=== PATIENT | male | born 1955 | race African-American/Black ===

== ENCOUNTER → 2017-05-28 | Outpatient (CLI) | payer OTHER ==
--- NOTE | 2017-05-28 15:36 | REP ---
Thoracic spine two views: There are no comparisons. Vertebral body heights and alignment are normal. There is moderate disc space narrowing throughout the thoracic spine with occasional bridging osteophytes anteriorly compatible with diffuse degenerative disc disease throughout the thoracic spine. Mineralization is normal. Pedicles are unremarkable. Impression: Diffuse degenerative disc disease throughout the thoracic spine. Signed by Steven Wisdom MD 05/28/2017 03:28 P
--- NOTE | 2017-05-28 16:26 | REP ---
AP LATERAL LEFT ELBOW: 05/28/2017. Clinical history: Posterior elbow injury. Pain. Findings: Prominent spur on the olecranon at the triceps insertion is noted. There is a tiny ossific density adjacent the posterior aspect of the olecranon near the distal humerus on the lateral view. It has smooth margins suggest old avulsion. There is no evidence of a joint effusion. I cannot confirm a definite olecranon bursitis. Radial head and capitellum align normally without fracture. There are small osteophytes in the coronoid process of the ulna and radial head at its metaphyseal margin. There is no evidence for avulsion or fracture about the epicondyles nor epicondylitis. Impression: 1. Prominent spur at the triceps insertion with old avulsion adjacent to the posterior olecranon near the posterior margin of the humerus with no definite olecranon bursitis. No epicondylitis or focal lesion. No acute fracture or joint effusion. No definite olecranon bursitis. Signed by Rowdy Russell MD 05/28/2017 04:31 P
--- NOTE | 2017-05-28 16:27 | REP ---
AP LATERAL LEFT KNEE: 05/28/2017: Clinical history: Knee injury, pain. Findings: There are no prior studies. The two views show spurs in the tibial spines, medial and lateral joint lines along the patellofemoral joint. Some mild narrowing of the patellofemoral joint may be present. Spurring at the quadriceps insertion and patellar tendon and origin on the patella on the lateral view. No loose body, osteochondral defect or displaced fracture. No avulsion. No definite effusion. IMPRESSION: 1. 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 No definite joint effusion. Signed by Rowdy Russell MD 05/28/2017 04:31 P
--- NOTE | 2017-05-28 16:29 | REP ---
AP LATERAL LUMBAR SPINE: 05/28/2017: Clinical history: Back pain. Findings: Two views are provided. There are no prior studies. Hypertrophic facet changes at L4-5 and L5-S1 present. There is no spondylolysis or spondylolisthesis. Slight disc space narrowing posteriorly at the L4-5 level. The normal lordosis maintained. Marginal osteophytes are present at all levels. Pedicles, spinous and transverse processes were maintained. SI joints, sacral ala and foramina intact. Marginal osteophytes greater at the lower thoracic spine and lumbar region. Impression: 1. Degenerative disc changes diffusely but mild and with facet arthropathy L4-5 and L5-S1. No spondylolysis, spondylolisthesis or compression deformity. Signed by Rowdy Russell MD 05/28/2017 04:31 P
== END ==
LOC: M WUC 14:13
PROVIDERS: ATTEND Surgery
DX: M25.722 Osteophyte, left elbow (principal); M17.12 Unilateral primary osteoarthritis, left knee; M51.36 Other intervertebral disc degeneration, lumbar region; M51.37 Other intervertebral disc degeneration, lumbosacral region; M51.34 Other intervertebral disc degeneration, thoracic region